=== PATIENT | female | born 1940 | race Caucasian/White ===

== ENCOUNTER 2019-10-10 17:17 | Inpatient (IN) | payer MEDICARE ==
[~2019-10-10] VITALS: Ht 157.5 cm; Wt 69.1 kg
--- NOTE | ~2019-10-10 | OP ---
PATIENT NAME: KAE STINSON MEDICAL RECORD: [id number] :44 LOCATION:D.M2 D.2118 ADMISSION DATE:10/10/19 SURGEON: DORIAN ADKINS MD DATE OF OPERATION: 10/10/2019 PROCEDURES: 1. PTCA stent LAD. 2. PTCA stent LAD diagonal. 3. Percutaneous transluminal coronary angioplasty stent of left circumflex. 4. Left heart catheterization. 5. Selective coronary angiography. 6. Left ventriculogram. INDICATION: Acute anterior myocardial infarction. PROCEDURE IN DETAIL: After informed consent was obtained, detailed description of risks, benefits as well as alternative therapies, the patient elected to proceed with angiogram and angioplasty. The right femoral area was prepped and draped in normal sterile fashion. Right femoral artery was cannulated via modified Seldinger technique with placement of 6-Chinese sheath. All catheters exchanged through this sheath. FINDINGS: The left ventriculogram was performed in standard 30-degree COCHRAN view, reveals global hypokinesis throughout all segments. Overall ejection fraction in the 20% range. SELECTIVE CORONARY ANGIOGRAPHY: 1. Left main is with no significant angiographic disease. 2. The left anterior descending has 95-99% stenosis in the proximal mid vessel. 3. The LAD diagonal has 95-99% stenosis in the proximal mid vessel. 4. The left circumflex has 90% stenosis in the mid vessel. 5. The right coronary has 90% stenosis times 2 at the PDA and TANIA. PTCA STENT OF THE LAD, LAD DIAGONAL, AND LEFT CIRCUMFLEX: The LAD was addressed with a 2.5 x 26 mm [place], the diagonal with a 2.25 x 15 mm Gerard, and the left circumflex with a 2.5 x 15 mm Gerard. Result was 0% residual stenosis. OVERALL IMPRESSION: Successful percutaneous transluminal coronary angioplasty stent of the left anterior descending, LAD diagonal, and left circumflex all going from 90% to 99% initial stenosis to 0% residual. PLAN: For PTCA stent of the RCA in the near future. TRANSINT:[id number] Voice Confirmation ID: [id number] DOCUMENT ID: [id number] DORIAN ADKINS MD CC: [id number] DICTATION DATE: 10/10/191820 PRESS FEEDER BROOMCORN: 10/11/19 [address] [facility] [address] [place] [address]
--- NOTE | ~2019-10-10 | HEMODYNAMI ---
PATIENT:KAE STINSON MEDICAL RECORD: [id number] : 44 LOCATION:[facility] D.2118 ADMISSION DATE: 10/10/19 Generatedon:10/12/201911:13 Patient name: KAE STINSON Patient #: [id number] : 1940 Date of study: 10/12/2019 Page: Of Hemodynamic Procedure Report Patient Data Patient Demographics Procedure consent was obtained First Name: KAE Gender: Female Last Name: SHANTELL : 1940 Patient #: [id number] Age: 79 year(s) Race: SSN: [id number] Additional ID: [id number] Contact details Address: [address] [place] [address] State: [place] City: [place] Zip code: [address] Past Medical History Allergies: No known allergies Admission Admission Data Admission Date: 10/10/2019 Admission Time: 19:16 Arrival Date: 10/10/2019 Arrival Time: 17:00 Admit Source: Other Insurance Payor: Medicare Room #: D.2118 [facility] #: [id number] Height (in.): 62 BSA: 1.7 (m2) Height (cm.): 157.48 BMI: 27.88 (kg/m2) Weight (lbs.): 152.41 Weight (kg.): 69.13 Lab Results Lab Result Date: 10/12/2019 Lab Result Time: 0:00 Biochemistry Name Units Result Min Max BUN mg/dl 18 --(---*)-- 7 18 Creatinine mg/dl 0.8 --(-*--)-- 0.6 1.3 eGFR ml/min 73.52511 *-(----)-- 90 120 NONAFRICAN CBC Name Units Result Min Max Hematocrit % 34.5 *-(----)-- 42 54 Hemoglobin g/dl 11.6 *-(----)-- 13.5 17.5 Procedure Procedure Types Cath Procedure Diagnostic Procedure Sedation Charges Moderate Sedation up to 15 minutes PCI Procedure Coronary Stent Coronary Stent Initial Hemochron ACT Test Procedure Description Procedure Date Procedure Date: 10/12/2019 Procedure Start Time: 10:57 Procedure End Time: 11:12 Procedure Staff Name Function Heriberto Smith MD Performing Physician Bernie Parisi RT Monitor Ashley Hoyos RT Scrub Ham Dukes RN Nurse Indication Prior PCI with stent placement Procedure Data Cath Procedure Fluoroscopy Diagnostic fluoroscopy Total fluoroscopy Time: 3.9 time: 3.9 min min Diagnostic fluoroscopy Total fluoroscopy dose: 333 dose: 333 mGy mGy Contrast Material Contrast Material Type Amount (ml) Isovue 370 75 Entry Location Entry Primary Successful Side Size Upsize Upsize Entry Closure Succes sful Closure Location (Fr) 1 (Fr) 2 (Fr) Remarks Device Remarks Femoral Left 6 Fr Exoseal artery Short Estimated blood loss: 10 ml Procedure Complications No complications Procedure Medications Medication Administration Route Dosage Oxygen etCO2 Nasal cannula 2 l/min Lidocaine 2% added to field 20 Heparin Flush Bag added to field 2 bags (1000units/500ml NS) 0.9% NaCl I.V. 100 ml/hr Versed I.V. 1 mg Fentanyl I.V. 50 mcg Heparin Bolus I.V. 4000 units Versed I.V. 1 mg Fentanyl I.V. 50 mcg Hemodynamics Rest BSA: 1.7 (m2) HGB: 11.6 (g/dl) O2 Consumption: Estimated: 155.73 (ml/min) O2 Con sumption indexed: Estimated:91.61 (ml/min/m) Heart Rate: 73 (bpm) Snapshots Pre Cath Intra NCS Post Cath Vital Signs Time Heart Resp SPO2 etCO2 NIBP (mmHg) Rhythm Pain Sedation Rate (ipm) (%) (mmHg) Status Level (bpm) 10:52:36 69 28 93 32.6 119/63(92) NSR 0 (11) 10(A) , No pain 10:56:46 67 26 91 28.1 108/61(91) NSR 0 (11) 10(A) , No pain 11:01:37 66 15 94 14.4 109/60(88) NSR 0 (11) 9(A) , No pain 11:06:34 72 18 93 15.9 138/70(108) NSR 0 (11) 9(A) , No pain 11:09:07 68 19 92 3 123/64(95) NSR 0 (11) 9(A) , No pain 11:10:25 67 18 93 2.2 118/61(91) NSR 0 (11) 10(A) , No pain Medications Time Medication Route Dose Verified Delivered Reason Notes Effectiveness by by 10:51:40 Oxygen etCO2 2 Herbierto Cheek used for Nasal l/min Sarah Dukes RN procedure cannula 10:51:46 Lidocaine 2% added 20ml Heriberto Louis for local to vial Sarah Smith MD anesthetic field 10:51:52 Heparin Flush added 2 Heribertobrian Louis used for Bag to bags Sarah Smith MD procedure (1000units/500ml field NS) 10:52:00 0.9% NaCl I.V. 100 Heriberto Cheek Per physician ml/hr Sarah Dukes RN 10:57:11 Versed I.V. 1 mg Heriberto Cheek for sedation Sarah Dukes RN 10:57:17 Fentanyl I.V. 50 Heriberto Cheek for sedation mcg Sarah Dukes RN 10:59:15 Heparin Bolus I.V. 4000 Heriberto Cheek for verif ied units Sarah Dukes RN anticoagulation with dr smith 11:00:39 Versed I.V. 1 mg Heriberto Cheek for sedation Sarah Dukes RN 11:00:42 Fentanyl I.V. 50 Heriberto Cheek for sedation mcg Sarah Dukes RN Procedure Log Time Note 10:36:30 Ham Dukes RN sent for patient. Start room use. 10:39:35 Informed consent obtained and on chart 10:40:13 Diagnostic Cath Status : Urgent 10:40:41 Indication : Prior PCI with stent placement 10:40:47 Patient Height : 62 inches 10:40:53 Patient Weight : 152.41 lbs 10:46:23 Admit Source: Other 10:46:27 Procedure Status Urgent Heart Cath (IP), PCI. 10:46:47 Time tracking: Call back (After hours or weekends) 10:46:52 Plan of Care:Hemodynamics will remain stable., Cardiac rhythm will remain stable., Comfort level will be maintained., Respiratory function will remain adequate., Patient/ family verbilizes understanding of procedure., Procedure tolerated without complication., Recovers from procedure without complications.. 10:46:59 Patient received from [email or web address] to CCL 1 Alert and oriented. Tansferred to table in Supine position. 10:47:01 Warm blankets applied, and larisa hugger turned on for patient comfort. 10:47:02 Correct patient and procedure confirmed by team. 10:47:02 ECG and BP/O2 sat monitors applied to patient. 10:47:05 Full Disclosure recording started 10:47:10 H&P Date Dictated: 10/12/2019 Within 30 days and on chart.. 10:47:12 Pre-procedure instructions explained to patient. 10:47:12 Pre-op teaching completed and patient verbalized understanding. 10:47:14 Family in patients room. 10:47:16 Patient NPO since Midnight. 10:48:07 Patient allergic to No known allergies 10:48:10 Is the patient allergic to Iodine/contrast media? No. 10:48:13 Was the patient premedicated? N/A 10:48:19 Is patient on blood thinner?Yes 10:48:21 ACC The patient was administered the following blood thiners within the last 24 hours: ACCPlavix 10:48:26 Patient diabetic? Yes. 10:48:28 If diabetic: On Metformin? No 10:48:31 Patient not . Patient is over age 55. 10:48:32 ----Pre-sedation anethsthesia assessment.---- 10:48:35 Previous problem with sedation/anesthesia? No ? 10:48:36 Snore? Yes 10:48:38 Sleep apnea? No 10:48:39 Deviated septum? No 10:48:40 Opens mouth fully? Yes 10:48:41 Sticks out tongue? Yes 10:48:44 Airway obstruction? No ? 10:48:46 Dentures? No ? 10:48:51 Pre procedure: right dorsailis pedis pulse 2+ Normal; easily identifiable; not easily obliterated 10:48:53 Patient pain scale 0/10 ?. 10:48:58 IV patent on arrival in left antecubital with 0.9% NaCl at O. 10:49:02 Lab results completed and on chart. 10:49:05 Stress Test: no; N/A ? 10:49:09 Risk of Mortality: 4.0 10:49:12 Risk of blood transfusion: 2.4 10:49:15 Risk of YANN: 2.9 10:49:19 Left groin area was prepped with chlora-prep and draped in sterile fashion 10:49:20 Alarms reviewed by R. N. 10:49:20 Sharps counted by scrub and verified by R.N. 10:51:30 Vital chart was started 10:51:40 Oxygen 2 l/min etCO2 Nasal cannula was administered by Ham Dukes RN; used for procedure; Verbal order read back and verified. 10:51:46 Lidocaine 2% 20ml vial added to field was administered by Heriberto Smith MD; for local anesthetic; Verbal order read back and verified. 10:51:52 Heparin Flush Bag (1000units/500ml NS) 2 bags added to field was administered by Heriberto Smith MD; used for procedure; Verbal order read back and verified. 10:52:00 0.9% NaCl 100 ml/hr I.V. was administered by Ham Dukes RN; Per physician; Verbal order read back and verified. 10:56:23 --------ALL STOP TIME OUT------ 10:56:24 Final Timeout: patient, procedure, and site verified with staff and physician. All members of the team are in agreement. 10:56:25 Left groin site verified by team. 10:56:29 Fire Safety Assessment: A--An alcohol-based skin anteseptic being used preoperatively., C--Open oxygen or nitrous oxide is being used., D--An ESU, laser, or fiber-optic light is being used. 10:56:32 Physical assessment completed. ASA score P 2 - A patient with mild systemic disease as per Heriberto Smith MD. 10:56:35 2) 60-89 Mildly reduced kidney function, and other findings (as for stage 1) point to kidney disease. 10:56:38 Maximum allowable contrast dose (3.7 X eGFR X 0.75)205 ml. 10:56:42 Sedation plan: IV Moderate Sedation Medication:Versed, Fentanyl 10:56:45 Procedure started. 10:56:47 Use device set Femoral Dx 10:56:48 ACIST Syringe (89172) opened to sterile field. 10:56:49 Bag Decanter () opened to sterile field. 10:56:50 Medline Cath Pack ([id number]) opened to sterile field. 10:56:51 ACIST Hand Control (44269) opened to sterile field. 10:56:52 ACIST Manifold (53565) opened to sterile field. 10:56:56 EMERALD Guide Wire (502-517) opened to sterile field. 10:57:04 Use device set SARHA PCI 10:57:10 Local anesthetic to left femerol artery with Lidocaine 2% by Heriberto Smith MD.INITIAL ACCESS ONLY 10:57:11 Versed 1 mg I.V. was administered by Ham Dukes RN; for sedation; Verbal order read back and verified. 10:57:12 SHEATH 6FR [place] (VGM689) opened to sterile field. 10:57:15 CHOICE PT Extra Support 182cm wire ([id number]) opened to sterile field. 10:57:17 Fentanyl 50 mcg I.V. was administered by Ham Dukes RN; for sedation; Verbal order read back and verified. 10:57:17 INFLATOR Merit BasixCompak (SV1725) opened to sterile field. 10:57:32 GUIDE 6FR AR 2.0 SH catheter ([id number]) opened to sterile field. 10:57:44 A 6 Fr Short sheath was inserted into the Left Femoral artery 10:58:51 Lab Result : BUN 18 mg/dl 10:58:51 Lab Result : Creatinine 0.8 mg/dl 10:58:51 Lab Result : eGFR NONAFRICAN 73.13553 ml/min 10:58:51 Lab Result : Hemoglobin 11.6 g/dl 10:58:51 Hemodynamic formulas in Rest were re-calculated based on hemoglobin value from 10/12/2019 12:00:00 AM 10:58:51 Lab Result : Hematocrit 34.5 % 10:58:58 Proceeding to intervention. 10:59:05 6 Fr ar 2 sh guide catheter was inserted over the wire 10:59:15 Heparin Bolus 4000 units I.V. was administered by Ham Dukes RN; for anticoagulation; verified with dr smith Verbal order read back and verified. 10:59:55 Pre PCI Site: [place] dRCA has 99% stenosis. 11:00:21 CHOICES ES 182 wire advanced. 11:00:23 Wire advanced across lesion. 11:00:39 Versed 1 mg I.V. was administered by Buffie Dukes RN; for sedation; Verbal order read back and verified. 11:00:42 Fentanyl 50 mcg I.V. was administered by Ham Dukes RN; for sedation; Verbal order read back and verified. 11:01:06 Place stent Inflation Number: 1 A JUANITO RX 2.5 x 08 stent ([id number]) was prepped and advanced across the Dist RCA . The stent was deployed at 13 ANDERS for 0:00 (min:sec) . 11:01:39 Stent catheter was removed intact over wire. 11:02:23 Place stent Inflation Number: 2 A JUANITO RX 2.5 x 12 stent ([id number]) was prepped and advanced across the Dist RCA . The stent was deployed at 11 ANDERS for 0:00 (min:sec) . 11:03:55 Baseline sample Acquired. 11:03:59 Rhythm: sinus rhythm 11:05:29 Stent catheter was removed intact over wire. 11:05:30 Wire removed. 11:05:31 Guide catheter removed. 11:05:38 EXOSEAL 6Fr (EX600) opened to sterile field. 11:05:56 Sheath removed intact; hemostasis achieved with Exoseal to the Left Femoral artery. 11:06:00 Fluoroscopy time 03.90 minutes. 11:06:04 Flurop Dose total: 333 11:06:04 Fluoroscopy dose: 333 mGy 11:06:11 Dose Area Product 96343 mGy/cm. 11:06:15 Contrast amount:Isovue 370 75ml. 11:06:17 Maximum allowable dose exceeded? No. 11:06:18 Sharps counted by scrub and verified by R.N. 11:07:14 Post-op/insertion site Left Femoral artery dressed using a 4 x 4 and Tegaderm. 11:07:22 Post left femerol artery:stable, soft, clean and dry 11:07:24 Post Procedure Pulses reassessed and unchanged 11:07:27 Post procedure: right dorsailis pedis pulse 2+ Normal; easily identifiable; not easily obliterated. 11:07:30 Post-procedure physical assessment completed. ASA score P 2 - A patient with mild systemic disease as per Heriberto Smith MD. 11:07:32 Post procedure rhythm: unchanged. 11:07:35 Estimated blood loss: 10 ml 11:07:36 Post procedure instruction explained to patient.Patient verbalizes understanding. 11:07:37 Patient needs reinforcement of post procedure teaching. 11:08:02 Procedure type changed to Cath procedure, Diagnostic procedure, Sedation Charges, Moderate Sedation up to 15 minutes, PCI procedure, Coronary Stent, Coronary Stent Initial, Hemochron ACT Test 11:08:19 Procedure ended.(Physican Out) 11:09:15 Procedure and supply charges have been captured, reviewed, submitted and are correct. 11:09:20 Procedure Complication : No complications 11::29 [facility] Findings: MVD- PCI performed (see procedure note) 11::30 Operative report dictated upon procedure completion. 11::30 See physician's report for complete and final results. 11::35 Report given to [facility] II. 11:09:38 Patient transfered to Med II with Bed. 11:11:08 ACT drawn and resulted at 233 seconds. (normal therapeutic range 180-240 seconds). 11:12:16 Procedure ended. 11:12:16 Full Disclosure recording stopped 11:12:21 ACC-PCI Only Patient was given prescriptions, or instructed by Heriberto Smith MD to start/continue the following medications upon discharge: Plavix 11:12:23 End room use (Document Last) 11:12:35 End room use (Document Last) 11:12:54 End room use (Document Last) Intervention Summary Intervention Notes Time ActionType Lesion and Equipment Used Action# Pressure Duration Attributes 11:01:06 Place stent Dist RCA JUANITO RX 2.5 x 1 13 00:00 08 stent ([id number]) 11:02:23 Place stent Dist RCA JUANITO RX 2.5 x 2 11 00:00 12 stent ([id number]) Device Usage Item Name Manufacture Quantity Catalog Number Hospital Part Current M inimal Lot# / Charge Number Stock Stock Serial# Code ACIST Syringe Acist 1 63564 063847 303672 168269 2 0 (54575) Medical Systems Inc Bag Decanter Microtek 1 009592 05177 120314 5 () Medical Inc. Medline Cath Medline 1 [id number] 411621 72061 127771 5 Pack ([id number]) ACIST Hand Acist 1 14580 052588 392053 694801 5 Control Medical (75491) Systems Inc ACIST Manifold Acist 1 15225 175503 747035 230237 5 (23301) Medical Systems Inc EMERALD Guide Cardinal 1 502-455 906573 555397 090572 5 Wire (502-455) Health SHEATH 6FR Terumo 1 [id number] 091339 242258 699553 4 0 [place] ([id number]) CHOICE PT [place] 1 [id number] 573859 100228 261888 5 Extra Support Scientific 182cm wire ([id number]) INFLATOR Merit Merit 1 [id number] 133828 566987 603602 1 5 [facility] Medical ([id number]) GUIDE 6FR AR Medtronic 1 [id number] 254157 60303 301344 1 2.0 SH catheter ([id number]) JUANITO RX 2.5 x Medtronic 1 [id number] 662435 8040553 775685 5 [id number] 08 stent ([id number]) JUANITO RX 2.5 x Medtronic 1 [id number] 458576 4156848 229445 5 [id number] 12 stent ([id number]) EXOSEAL 6Fr Cardinal 1 EX600 510797 961107 025002 1 0 (EX600) Health Signature Audit [place] Stage Time Signature Unsigned Intra-Procedure 10/12/2019 Bernie Parisi 11:12:35 AM RT(R) Intra-Procedure 10/12/2019 Ham Dukes RN 11:12:55 AM Intra-Procedure 10/12/2019 Heriberto Smith 11:13:22 AM [facility] [address] [place] [address]
--- NOTE | ~2019-10-10 | OP ---
PATIENT NAME: KAE STINSON MEDICAL RECORD: [id number] :44 LOCATION:D.M2 D.2118 ADMISSION DATE:10/10/19 SURGEON: DORIAN ADKINS MD DATE OF OPERATION: 10/11/2019 PROCEDURES: 1. PTCA stent RCA. 2. Selective coronary angiography. INDICATION: Angina and coronary artery disease. PROCEDURE PERFORMED: After informed consent was obtained, detailed description of risks, benefits as well as alternative therapies, the patient elected to proceed with angiogram and angioplasty. The left femoral area was prepped and draped in normal sterile fashion. Left femoral artery was cannulated via modified Seldinger technique with placement of 6-Khmer sheath. All catheters exchanged through this sheath. FINDINGS: The right coronary has 90% stenosis times 2 in the distal aspect. This was addressed with a 2.5 x 8 and 2.5 x 12 both Gerard stents. Result was 0% residual stenosis. OVERALL IMPRESSION: Successful percutaneous transluminal coronary angioplasty stent of the right coronary artery going from 90% initial stenosis to 0% residual. TRANSINT:[id number] Voice Confirmation ID: [id number] DOCUMENT ID: [id number] DORIAN ADKINS MD CC: [id number] DICTATION DATE: 10/12/19 1111 THREAD WINDER: 10/12/19 1933 ADM IN [facility] [address] [place] [address]
--- NOTE | ~2019-10-10 | HEMODYNAMI ---
PATIENT:KAE STINSON MEDICAL RECORD: [id number] : 44 [id number] ADMISSION DATE: 10/10/19 Generatedon:10/10/201918:28 Patient name: KAE STINSON Patient #: [id number] : 1940 Date of study: 10/10/2019 Page: Of Hemodynamic Procedure Report Patient Data Patient Demographics Procedure consent was obtained First Name: KAE Gender: Female Last Name: SHANTELL : 1940 Patient #: [id number] Age: 79 year(s) Race: SSN: [id number] Additional ID: [id number] Contact details [address]: [address] [place] [address] State: [place] City: [place] Zip code: [address] Admission Admission Data Admission Date: 10/10/2019 Admission Time: 17:17 Arrival Date: 10/10/2019 Arrival Time: 17:00 Admit Source: Emergency Insurance Payor: Medicare department [facility] #: [id number] Lab Results Lab Result Date: 10/10/2019 Lab Result Time: 0:00 Biochemistry Name Units Result Min Max BUN mg/dl 8 --(*---)-- 7 18 Creatinine mg/dl 0.4 *-(----)-- 0.6 1.3 CBC Name Units Result Min Max Hemoglobin g/dl 13.3 -*(----)-- 13.5 17.5 Procedure Procedure Types Cath Procedure Diagnostic Procedure LHC LH w/Coronaries Sedation Charges Moderate Sedation up to 30 minutes PCI Procedure Coronary Stent Coronary Stent Initial x2 Coronary Stent Additional Hemochron ACT Test Procedure Description Procedure Date Procedure Date: 10/10/2019 Procedure Start Time: 18:00 Procedure End Time: 18:24 Procedure Staff Name Function Heriberto Smith MD Performing Physician Ashley Hoyos RT Monitor Bernie Parisi RT Scrub Ham Dukes RN Nurse Procedure Data Cath Procedure Fluoroscopy Diagnostic fluoroscopy Total fluoroscopy Time: 6.1 time: 6.1 min min Diagnostic fluoroscopy Total fluoroscopy dose: dose: 5830 mGy 5830 mGy Contrast Material Contrast Material Type Amount (ml) Isovue 300 124 Entry Location Entry Primary Successful Side Size Upsize Upsize Entry Closure Succes sful Closure Location (Fr) 1 (Fr) 2 (Fr) Remarks Device Remarks Femoral Right 6 Fr Exoseal artery Short Estimated blood loss: 5 ml Diagnostic catheters Device Type Used For End Catheter Placement MULTIPACK Pigtail 5 Fr LV Angiography catheter MULTIPACK JL 4.0 5Fr Left Coronary catheter Angiography MULTIPACK 3DRC 5Fr Right Coronary catheter Angiography Procedure Complications No complications Procedure Medications Medication Administration Route Dosage Oxygen etCO2 Nasal cannula 2 l/min Lidocaine 2% added to field 20 Heparin Flush Bag added to field 2 bags (1000units/500ml NS) 0.9% NaCl I.V. 100 ml/hr Heparin Drip (17188bsimn/250 D5W) Versed I.V. 1 mg Fentanyl I.V. 50 mcg Lopressor I.V. 5 mg Heparin Bolus I.V. 5000 units Integrilin (Bolus I.V. 6.2 ml 2mg/ml) Versed I.V. 1 mg Fentanyl I.V. 50 mcg Plavix P.O. 600 mg Hemodynamics Rest HGB: 13.3 (g/dl) Heart Rate: 95 (bpm) Snapshots Pre Cath Intra NCS Post Cath Vital Signs Time Heart Resp SPO2 etCO2 NIBP (mmHg) Rhythm Pain Sedation Rate (ipm) (%) (mmHg) Status Level (bpm) 17:54:21 93 25 95 0 153/89(107) NSR 0 (11) 10(A) , No pain 17:58:33 88 23 94 0 139/79(108) NSR 0 (11) 10(A) , No pain 18:02:42 84 22 95 0 132/73(104) NSR 0 (11) 10(A) , No pain 18:06:52 67 19 93 0 125/61(90) NSR 0 (11) 9(A) , No pain 18:11:00 68 20 94 0 117/61(80) NSR 0 (11) 9(A) , No pain 18:15:06 69 21 96 0 127/61(85) NSR 0 (11) 9(A) , No pain 18:19:16 70 20 95 5.3 124/60(76) NSR 0 (11) 10(A) , No pain 18:23:22 70 24 91 0.7 127/66(91) NSR 0 (11) 10(A) , No pain Medications Time Medication Route Dose Verified Delivered Reason N otes Effectiveness by by 17:53:45 Oxygen etCO2 2 l/min Heriberto Cheek used for Nasal Sarah Dukes RN procedure cannula 17:53:52 Lidocaine 2% added 20ml vial Heriberto Louis for local to Sarah Smith MD anesthetic field 17:56:00 Heparin Flush added 2 bags Heribertobrian Louis used for Bag to Sarah Smith MD procedure (1000units/500ml field NS) 17:56:08 0.9% NaCl I.V. 100 ml/hr Heribertobrian Cheek Per physician Sarah Dukes RN 17:56:28 Heparin Drip stopped Heriberto Cheek Per physician (61055odhjq/250 for Sarah Dukes RN D5W) procedure 17:56:35 Versed I.V. 1 mg Heriberto Cheek for sedation Sarah Dukes RN 17:56:40 Fentanyl I.V. 50 mcg Heriberto Cheek for sedation Sarah Dukes RN 18:03:12 Lopressor I.V. 5 mg Heriberto Cheek Per physician Sarah Dukes RN 18:04:42 Heparin Bolus I.V. 5000 Heriberto Cheek for v erified units Sarah Dukes RN anticoagulation with dr smith 18:07:29 Integrilin I.V. 6.2 ml Heriberto Cheek for w asted (Bolus 2mg/ml) Sarah Dukes RN antiplatelet 3.8 ml therapy of vial 18:10:18 Versed I.V. 1 mg Heriberto Cheek for sedation Sarah Dukes RN 18:10:22 Fentanyl I.V. 50 mcg Heriberto Cheek for sedation Sarah Dukes RN 18:21:21 Plavix P.O. 600 mg Heriberto Cheek for Sarah Dukes RN antiplatelet therapy Procedure Log Time Note 17:29:37 Diagnostic Cath Status : Urgent 17:30:28 Informed consent obtained and on chart 17:30:41 Admit Source: Emergency department 17:30:43 Arrival Date: 10/10/2019 5:00:00 PM 17:30:52 Insurance Payor : Medicare 17:32:05 Ham Dukes RN sent for patient. Start room use. 17:32:06 Time tracking: Regular hours (M-F 7:00 - 5:00) 17:32:10 Plan of Care:Hemodynamics will remain stable., Cardiac rhythm will remain stable., Comfort level will be maintained., Respiratory function will remain adequate., Patient/ family verbilizes understanding of procedure., Procedure tolerated without complication., Recovers from procedure without complications.. 17:53:13 Patient received from ED to CCL 1 Alert and oriented. Tansferred to table in Supine position. 17:53:14 Warm blankets applied, and larisa hugger turned on for patient comfort. 17:53:15 Correct patient and procedure confirmed by team. 17:53:15 ECG and BP/O2 sat monitors applied to patient. 17:53:16 Vital chart was started 17:53:17 Baseline sample Acquired. 17:53:22 Rhythm: sinus rhythm 17:53:24 Full Disclosure recording started 17:53:28 H&P Date Dictated: 10/10/2019 ER History on chart.. 17:53:29 Pre-procedure instructions explained to patient. 17:53:30 Pre-op teaching completed and patient verbalized understanding. 17:53:31 Family in waiting room. 17:53:40 Patient NPO since Midnight. 17:53:45 Oxygen 2 l/min etCO2 Nasal cannula was administered by Ham Dukes RN; used for procedure; Verbal order read back and verified. 17:53:52 Lidocaine 2% 20ml vial added to field was administered by Heriberto Smith MD; for local anesthetic; Verbal order read back and verified. 17:53:52 Is the patient allergic to Iodine/contrast media? No. 17:53:53 Was the patient premedicated? Yes 17:53:54 Is patient on blood thinner?Yes 17:53:57 ACC The patient was administered the following blood thiners within the last 24 hours: ACCHeparin 17:53:59 Patient diabetic? Yes. 17:54:00 If diabetic: On Metformin? No 17:54:04 Previous problem with sedation/anesthesia? No ? 17:54:06 Snore? Yes 17:54:07 Sleep apnea? No 17:54:08 Deviated septum? No 17:54:09 Opens mouth fully? Yes 17:54:10 Sticks out tongue? Yes 17:54:13 Airway obstruction? No ? 17:54:16 Dentures? No ? 17:54:25 Pre procedure: right dorsailis pedis pulse 2+ Normal; easily identifiable; not easily obliterated 17:54:27 Pre procedure: left dorsailis pedis pulse 2+ Normal; easily identifiable; not easily obliterated 17:54:28 Patient pain scale 0/10 ?. 17:54:42 IV patent on arrival in right antecubital, left antecubital with 0.9% NaCl at [facility]. 17:54:45 Lab results completed and on chart. 17:55:00 Right groin area was prepped with chlora-prep and draped in sterile fashion 17:55:01 Alarms reviewed by R. N. 17:55:02 Sharps counted by scrub and verified by R.N. 17:55:02 Physician arrived 17:55:03 --------ALL STOP TIME OUT------ 17:55:03 Final Timeout: patient, procedure, and site verified with staff and physician. All members of the team are in agreement. 17:55:04 Right groin site verified by team. 17:55:08 Fire Safety Assessment: A--An alcohol-based skin anteseptic being used preoperatively., C--Open oxygen or nitrous oxide is being used., D--An ESU, laser, or fiber-optic light is being used. 17:55:12 Physical assessment completed. ASA score P 2 - A patient with mild systemic disease as per Heriberto Smith MD. 17:56:00 Heparin Flush Bag (1000units/500ml NS) 2 bags added to field was administered by Heriberto Smith MD; used for procedure; Verbal order read back and verified. 17:56:08 0.9% NaCl 100 ml/hr I.V. was administered by Ham Dukes RN; Per physician; Verbal order read back and verified. 17:56:28 Heparin Drip (24695gbsyz/250 D5W) stopped for procedure was administered by Ham Dukes RN; Per physician; Verbal order read back and verified. 17:56:35 Versed 1 mg I.V. was administered by Ham Dukes RN; for sedation; Verbal order read back and verified. 17:56:40 Fentanyl 50 mcg I.V. was administered by Ham Dukes RN; for sedation; Verbal order read back and verified. 17:56:40 Sedation plan: IV Moderate Sedation Medication:Versed, Fentanyl 17:57:10 Lab Result : Hemoglobin 13.3 g/dl 17:57:10 Lab Result : Creatinine 0.4 mg/dl 17:57:10 Lab Result : BUN 8 mg/dl 17:57:18 Use device set Femoral Dx 17:57:19 ACIST Syringe (03655) opened to sterile field. 17:57:19 Bag Decanter (2002S) opened to sterile field. 17:57:19 Medline Cath Pack ([id number]) opened to sterile field. 17:57:20 ACIST Manifold (25761) opened to sterile field. 17:57:21 ACIST Hand Control (08543) opened to sterile field. 17:57:22 DIAGNOSTIC Multipack 5Fr catheter set (PF1477) opened to sterile field. 17:57:22 Tegaderm 4 x 4 (1626W) opened to sterile field. 17:57:23 EMERALD Guide Wire (532-362) opened to sterile field. 17:57:28 Procedure started. 18:00:34 Local anesthetic to right femoral artery with Lidocaine 2% by Heriberto Smith MD.INITIAL ACCESS ONLY 18:00:41 A 6 Fr Short sheath was inserted into the Right Femoral artery 18:00:55 SHEATH 6FR [place] (LOO819) opened to sterile field. 18:01:08 A MULTIPACK Pigtail 5 Fr catheter was advanced over the wire and used for LV Angiography. 18:01:14 LV hemodynamics recorded. 18:01:16 LV gram done using COCHRAN 18:01:18 Injector settings: Ml/sec: 5, Volume: 15, 18:01:24 EF : 25 % 18:01:36 Catheter removed. 18:01:42 A MULTIPACK JL 4.0 5Fr catheter was advanced over the wire and used for Left Coronary Angiography. 18:01:46 LCA angiography performed. 18:01:49 Injector settings: Ml/sec: 3, Volume: 6, 18:02:16 Catheter removed. 18:02:21 A MULTIPACK 3DRC 5Fr catheter was advanced over the wire and used for Right Coronary Angiography. 18:02:59 RCA angiography performed. 18:03:04 Injector settings: Ml/sec: 3, Volume: 6, 18:03:07 Catheter removed. 18:03:12 Lopressor 5 mg I.V. was administered by Ham Dukes RN; Per physician; Verbal order read back and verified. 18:03:26 CHOICE PT Extra Support 182cm wire ([id number]) opened to sterile field. 18:03:27 INFLATOR Merit BasixCompak (DJ2116) opened to sterile field. 18:03:35 GUIDE 6FR XBLAD 3.5 catheter ([id number]) opened to sterile field. 18:03:39 Proceeding to intervention. 18:03:43 ACC Pre-intervention KOLTON Flow is 3. 18:04:42 Heparin Bolus 5000 units I.V. was administered by Ham Dukes RN; for anticoagulation; verified with dr smith Verbal order read back and verified. 18:05:26 6 Fr xblad 3.5 guide catheter was inserted over the wire 18:05:30 choice pt wire advanced. 18:07:29 Integrilin (Bolus 2mg/ml) 6.2 ml I.V. was administered by Ham Dukes RN; for antiplatelet therapy; wasted 3.8 ml of vial Verbal order read back and verified. 18:07:38 ACC Pre-intervention KOLTON Flow is 3. 18:07:45 Pre PCI Site: [place] dCirc has 90% stenosis. 18:07:51 Place stent Inflation Number: 1 A JUANITO RX 2.5 x 15 stent ([id number]) was prepped and advanced across the Dist CX 90. The stent was deployed at 13 ANDERS for 0:10 (min:sec) 0. 18:08:49 Stent catheter was removed intact over wire. 18:08:52 Wire redirected to lad. 18:09:07 Wire removed. 18:09:15 GRAPHIX 182cm guide wire ([id number]) opened to sterile field. 18:09:29 graphix wire advanced. 18:10:18 Versed 1 mg I.V. was administered by Ham Dukes RN; for sedation; Verbal order read back and verified. 18:10:22 Fentanyl 50 mcg I.V. was administered by Ham Dukes RN; for sedation; Verbal order read back and verified. 18:12:49 Post PCI Site: [place] dCirc has 0% stenosis. 18:13:01 Pre PCI Site: [place] Diag1 has 95% stenosis. 18:13:12 Wire advanced across lesion. 18:13:45 Place stent Inflation Number: 1 A JUANITO RX 2.25 x 15 stent ([id number]) was prepped and advanced across the 1st Diag 95. The stent was deployed at 13 ANDERS for 0:10 (min:sec) 0. 18:14:39 Post PCI Site: [place] Diag1 has 0% stenosis. 18:14:39 Stent catheter was removed intact over wire. 18:15:52 Pre PCI Site: [place] pLAD has 95% stenosis. 18:15:56 Place stent Inflation Number: 1 A JUANITO RX 2.5 x 26 stent ([id number]) was prepped and advanced across the Prox LAD 95. The stent was deployed at 13 ANDERS for 0:10 (min:sec) 0. 18:16:59 Post PCI Site: [place] pLAD has 0% stenosis. 18:16:59 Stent catheter was removed intact over wire. 18:17:00 Wire removed. 18:17:00 Guide catheter removed. 18:17:06 EXOSEAL 6Fr (EX600) opened to sterile field. 18:20:57 ACT drawn and resulted at 233 seconds. (normal therapeutic range 180-240 seconds). 18:21:21 Plavix 600 mg P.O. was administered by Ham Dukes RN; for antiplatelet therapy; Verbal order read back and verified. 18:21:55 Sheath removed intact; hemostasis achieved with Exoseal to the Right Femoral artery. 18:22:04 Procedure ended.(Physican Out) 18:23:00 Fluoroscopy time 06.10 minutes. 18:23:05 Fluoroscopy dose: 5830 mGy 18:23:05 Flurop Dose total: 5830 18:23:11 Dose Area Product 10404 mGy/cm. 18:23:15 Contrast amount:Isovue 300 124ml. 18:23:24 Maximum allowable dose exceeded? No. 18:23:25 Sharps counted by scrub and verified by R.N. 18:23:26 Insertion/operative site no bleeding no hematoma. 18:23:29 Post-op/insertion site Right Femoral artery dressed using a 4 x 4 and Tegaderm. 18:23:31 Post Procedure Pulses reassessed and unchanged 18:23:34 Post procedure rhythm: unchanged. 18:23:36 Estimated blood loss: 5 ml 18:23:38 Post procedure instruction explained to patient.Patient verbalizes understanding. 18:23:39 Patient needs reinforcement of post procedure teaching. 18:24:18 Procedure type changed to Cath procedure, Diagnostic procedure, LHC, C w/Coronaries, Sedation Charges, Moderate Sedation up to 30 minutes, PCI procedure, Coronary Stent, Coronary Stent Initial x2, Coronary Stent Additional, Hemochron ACT Test 18:24:19 Procedure and supply charges have been captured, reviewed, submitted and are correct. 18:24:23 Procedure Complication : No complications 18:24:26 Vital chart was stopped 18:24:28 [facility] Findings: MVD- PCI performed (see procedure note) 18:24:32 Operative report dictated upon procedure completion. 18:24:32 See physician's report for complete and final results. 18:24:49 Report given to PCU. 18:24:52 Patient transfered to PCU with Stretcher. 18:24:54 Procedure ended. 18:24:54 Full Disclosure recording stopped 18:25:02 ACC-PCI Only Patient was given prescriptions, or instructed by Heriberto Smith MD to start/continue the following medications upon discharge: Plavix 18:25:04 End room use (Document Last) 18:28:03 End room use (Document Last) Intervention Summary Intervention Notes Time ActionType Lesion and Equipment Used Action# Pressure Duration Attributes 18:07:51 Place stent Dist CX JUANITO RX 2.5 x 1 13 00:10 15 stent ([id number]) 18:13:45 Place stent 1st Diag JUANITO RX 2.25 x 1 13 00:10 15 stent ([id number]) 18:15:56 Place stent Prox LAD JUANITO RX 2.5 x 1 13 00:10 26 stent ([id number]) Device Usage Item Name Manufacture Quantity Catalog Number Hospital Part Current M inimal Lot# / Charge Number Stock Stock Serial# Code ACIST Syringe Acist 1 05299 055723 005758 699062 2 0 (89722) c8apps Inc Bag Decanter Microtek 1 2001S 388927 68010 600856 5 () Medical Inc. Medline Cath Medline 1 [id number] 819908 66536 729387 5 Pack ([id number]) ACIST Manifold Acist 1 20297 450001 018828 820335 5 (29464) Medical Systems Inc ACIST Hand Acist 1 27221 844061 730505 913484 5 Control Medical (48194) Systems Inc DIAGNOSTIC Cardinal 1 JL3025 946843 01949 674671 3 0 Multipack 5Fr Health catheter set (SF1053) Tegaderm 4 x 4 3M 1 1626W 226931 503920 419057 5 (1626W) EMERALD Guide Cardinal 1 502-455 067005 587710 145349 5 Wire (502-455) Health SHEATH 6FR Terumo 1 QHI372 908062 194375 653995 4 0 [place] (KVC082) MULTIPACK Cardinal 1 717412 5 Pigtail 5 Fr Health catheter MULTIPACK JL Cardinal 1 796663 5 4.0 5Fr Health catheter MULTIPACK 3DRC Cardinal 1 358022 5 5Fr catheter Health CHOICE PT [place] 1 [id number] 396242 987559 960058 5 Extra Support Scientific 182cm wire (4600544F2) INFLATOR Merit Merit 1 MP6729 090015 140103 875417 1 5 Lighting by LED (GE1291) GUIDE 6FR Cardinal 1 56944741 895588 437912 445956 1 0 XBLAD 3.5 Health catheter (57562910) JUANITO RX 2.5 x Medtronic 1 [id number] 784369 8752892 411456 5 [id number] 15 stent ([id number]) GRAPHIX 182cm [place] 1 [id number] 404392 708408 294484 5 guide wire Alphatec Spine (3145880A4) JUANITO RX 2.25 x Medtronic 1 [id number] 472508 3212811 258779 5 [id number] 15 stent ([id number]) JUANITO RX 2.5 x Medtronic 1 [id number] 121415 8899732 364484 5 [id number] 26 stent ([id number]) EXOSEAL 6Fr Cardinal 1 EX600 677953 206848 166809 1 0 (EX600) Health Signature Audit Mcnabb Stage Time Signature Unsigned Intra-Procedure 10/10/2019 Ashley Hoyos 6:27:41 PM RT(R) Intra-Procedure 10/10/2019 Ham Dukes RN 6:28:03 PM Intra-Procedure 10/10/2019 Heriberto Smith 6:28:21 PM [id number] [place] [address]
--- NOTE | ~2019-10-10 | EC ---
PATIENT:KAE STINSON DATE OF SERVICE: 10/10/19 SEX: F MEDICAL RECORD: [id number] DATE OF : 44 LOCATION:D.M2 D.211 AGE OF PATIENT: 79 ADMISSION DATE: 10/10/19 REFERRING PHYSICIAN: INTERPRETING PHYSICIAN: DORIAN SMITH MD ECHOCARDIOGRAM REPORT ECHO CHARGES 4 ECHO COMPLETE Date: 10/11/19 CLINICAL DIAGNOSIS: [place] ECHOCARDIOGRAPHIC MEASUREMENTS (adult normal given) AC root (d.<3.7cm) 2.0 cm LV Septum d (<1.2 cm> 0.7 cm Valve Excursion 1.0 cm LV Septum (systole) 1.0 cm Left Atria (s.<4.0cm> 3.9 cm LVPW d(<1.2cm) 1.2 cm RV (d.<2.3cm) 2.2 cm LVPW (sytole) 1.4 cm LV diastole(<5.6CM) 5.5 cm MV E-F(>70mm/sec) cm LV systole 4.8 cm LVOT Diameter 1.6 cm MV exc.(>10mm) cm Est.ejection fraction (50-75%) % DOPPLER: LVIT cm/sec A 59 cm/sec E 93 cm/sec LA cm/sec RVSP 41.2 mmHg LVOT 78 cm/sec AOP1/2T m/s Asc. Ao 125 cm/sec RVOT 71 cm/sec RA cm/sec PA 78 cm/sec AV Gradient Peak 6.2 mmHg AV Mean 3.5 mmHg AV Area 1.4 cm MV Gradient Peak 4.0 mmHg MV Mean 1.8 mmHg MV Area cm COMMENTS: Ekg/Ecg Technician: [place] [facility] Manager Maintenance: 1 Dr. Smiht TAPE# PACS Pericardial Effusion Y DATE OF SERVICE: FINDINGS: 1. Left ventricular chamber size is within normal limits. Left ventricular systolic function is mildly reduced at 40%. This is a significant improvement over the ejection fraction at cardiac catheterization, which was in the 25% range. 2. Left atrium, right atrium, and right ventricle chamber sizes are within normal limits. 3. Valvular structures have normal structure and motion. ECHOCARDIOGRAM REPORT [id number] KAE STINSON 4. Doppler interrogation reveals [id number] mitral regurgitation, no other valvular insufficiency or stenosis. Pulmonary systolic pressure estimated 41 mmHg. 5. No evidence of pericardial effusion or left ventricular thrombus. TRANSINT:[id number] Voice Confirmation ID: [id number] DOCUMENT ID: [id number] DORIAN SMITH MD CC: [id number] DICTATION DATE: 10/12/191111 [employer] ATTORNEY: 10/12/[address] [facility] [address] [id number]
[2019-10-10 17:47] LABS: BASOPHILS 0.4 % (0-2); EOSINOPHILS 1.3 % (0-7); HEMATOCRIT 36.3 % (36.0-48.0); HEMOGLOBIN 12.4 g/dL (12-16); IMMATURE GRANULOCYTES 0.2 % (0-5); MCH 30.4 pg (26.0-34.0); MCHC 34.2 g/dL (31.0-37.0); MEAN PLATELET VOLUME 10.4 fL (7.4-10.4); MONOCYTES 9.2 % (2-11); NEUTROPHILS 64.9 % (40-80); PLATELET COUNT 403 10x3/uL (130-400); RBC 4.08 10x6/uL (4.00-5.40); RDW 11.9 % (11.5-14.5); WBC 10.7 10x3/uL (4.8-10.8)
[2019-10-10 17:56] LABS: CALC OSMOLALITY 276 mosm/kg (275-300); CALCIUM 8.8 mg/dL (8.5-10.1); CARBON DIOXIDE 27.8 mmol/L (21.0-32.0); CHLORIDE - SERUM 101 mmol/L (98-107); CREATININE - SERUM 0.7 mg/dL (0.6-1.3); GLUCOSE 243 mg/dL (74-106); POTASSIUM - SERUM 3.7 mmol/L (3.5-5.1); SODIUM 135 mmol/L (136-145); UREA NITROGEN 11 mg/dL (7-18); eGFR NON AFRICAN AMERICAN 86 mL/min (90-120)
[2019-10-10 19:44] VITALS: BP 130/63; BMI 28.8
[2019-10-10] MEDS ORDERED: ADVIL200 MG PO (19:44)
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
[2019-10-11] VITALS: BP 119/65
--- NOTE | 2019-10-11 00:24 | NUR ---
ASSISTED PT TO BR AT 2330 HRS. GAIT EVEN AND STEADY. PT VOIDED 500CC OF DARK YELLOW URINE. ASSISTED BACK TO BED. R GROIN CLEAN,DRY AND INTACT WITHOUT BRUISING, SWELLING OR BLEEDING. DENEID ANY PAIN TO THE AREA. PALPABLE PEDAL PULSES. SR UP X2, CALL LIGHT WITHIN REACH.
--- NOTE | 2019-10-11 02:13 | NUR ---
PT STATES ZOFRAN BEGINNING TO WORK. SLIGHT BRUISE NOTED BELOW OPSITE ON R GROIN. AREA SOFT AND NON-TENDER. PALPABLE PEDAL PULSES. SR UP X2, CALL LIGHT WITHIN REACH AND FAMILY AT BEDSIDE.
[2019-10-11 04:00] VITALS: BP 105/47
--- NOTE | 2019-10-11 04:03 | NUR ---
PT HAS C/O SOB AND DISCOMFORTR TO CHEST. O2 SAT 93% ON RM AIR, O2 2LNC PLACED WITH O2 SAT TO 96%. NORCO 5/325 PO GIVEN FOR C/O CHEST DISCOMFORT. FAMILY AT BEDSIDE. SR UP X2,CALL LIGHT WITHIN REACH.
--- NOTE | 2019-10-11 04:05 | NUR ---
R GROIN SOFT TO TOUCH. BRUISING NOTED TO R GROIN AREA. STRONG PEDAL PULSES.
--- NOTE | 2019-10-11 06:00 | NUR ---
VSS THROUGHOUT NIGHT. SR PER CM. PT STATED NORCO ALLEVIATED HER DISCOMFORT. R GROIN SOFT, NON-TENDER. PALPABLE PEDAL PULSES. NEEDS MET; WILL CONTINUE TO MONITOR.
[2019-10-11 09:10] VITALS: BP 112/56
[2019-10-11 12:00] VITALS: BP 142/83
[2019-10-11 15:16] VITALS: Ht 157.5 cm; Wt 69.1 kg
--- NOTE | 2019-10-11 16:16 | NUR ---
PAGED DR ADKINS RECEIVED NEW ORDERS PT SOB RATE 42 B/P 154/85 P95 O2 SAT 94% ON 3LPM NC FSBS 346
[2019-10-11 20:00] VITALS: BP 149/76
--- NOTE | 2019-10-11 21:48 | NUR ---
INITAIL ROUNDS COMPLETED AT 1915 HRS. PT STATES FEELS BETTER. NEW MEDS ORDERED BY DR BURNS EXPLAINED TO PT. ASSESSMENT COMPLETED AT 2004. VSS. SR PER CM HR 91. VSS. ALERT AND ORIENTED TO PERSON, PLACE AND TIME. SHAFFER. LUNGS DIMINISHED IN BASES BILAT. IV TO RAC SL. R GROIN BRUISED, SOFT TO TOUCH. STRONG PEDAL PULSES. PM FSBS 138. NO COVERGAE NEEDED. AWAITING HISTORIOGRAPHER TO PULL MEDS. SR UP X2,CALL LIGHT WITHIN REACH AND BED ALARM ON.
--- NOTE | 2019-10-11 23:14 | NUR ---
IV ROCEPHIN INFUSED. PT DENEID ANY PROBLEMS. SON AT BEDSIDE. SR UP X2, CALL LIGHT WITHIN REACH AND BED ALRM ON.
--- NOTE | 2019-10-12 01:28 | NUR ---
PT RESTING WITH EYES CLOSED. RESP EVEN AND REGULAR. SR UP X2, CALL LIGHT WITHIN REACH AND BED ALARM ON.
[2019-10-12 01:35] VITALS: BP 140/68
--- NOTE | 2019-10-12 04:58 | NUR ---
PT RESTING WITH EYES CLOSED. RESP EVEN AND REGULAR. SR UP X2,CALL LIGHT WITHIN REACH.
[2019-10-12 05:04] LABS: BASOPHILS 0.1 % (0-2); EOSINOPHILS 0.2 % (0-7); HEMATOCRIT 34.5 % (36.0-48.0); HEMOGLOBIN 11.6 g/dL (12-16); IMMATURE GRANULOCYTES 0.2 % (0-5); LYMPHOCYTES 14.9 % (15-50); MCH 30.4 pg (26.0-34.0); MCHC 33.6 g/dL (31.0-37.0); MCV 90.3 fL (80.0-100.0); MEAN PLATELET VOLUME 10.8 fL (7.4-10.4); MONOCYTES 7.3 % (2-11); NEUTROPHILS 77.3 % (40-80); PLATELET COUNT 412 10x3/uL (130-400); RBC 3.82 10x6/uL (4.00-5.40); RDW 12.3 % (11.5-14.5)
[2019-10-12 05:08] LABS: WBC 16.2 10x3/uL (4.8-10.8)
[2019-10-12 05:11] VITALS: BP 144/87
[2019-10-12 05:24] LABS: ALBUMIN 2.7 g/dL (3.4-5.0); ANION GAP 10.4 mmol/L (8-16); BILIRUBIN - TOTAL 0.56 mg/dL (0.2-1.3); CARBON DIOXIDE 30.4 mmol/L (21.0-32.0); CREATININE - SERUM 0.8 mg/dL (0.6-1.3); MAGNESIUM - SERUM 1.9 mg/dL (1.8-2.4); PHOSPHOROUS 3.6 mg/dL (2.5-4.9)
[2019-10-12 05:30] LABS: POTASSIUM - SERUM 4.8 mmol/L (3.5-5.1)
--- NOTE | 2019-10-12 05:55 | NUR ---
VSS THROUGHOUT NIGHT. PT DENIED ANY DISCOMFORT. NEEDS MET; WILL CONTINUE TO MONITOR.
--- NOTE | 2019-10-12 07:15 | NUR ---
RECEIVED PT IN BED EYES CLOSED RESP UNLABORED NAD NOTED
[2019-10-12 09:14] VITALS: BP 137/79
--- NOTE | 2019-10-12 11:09 | HP ---
PATIENT: KAE MARCELINO MEDICAL RECORD: [id number] ACCOUNT: [id number] LOCATION:[facility].2118 : 44 ADMISSION DATE: 10/10/19 PCP: ROD DUARTE HISTORY AND PHYSICAL EXAMINATION ADMITTING DIAGNOSES: 1. Acute myocardial infarction. 2. Coronary artery disease. 3. Diabetes. HISTORY OF PRESENT ILLNESS: Mrs. Marcelino has not had a cardiac history. She has been having chest pain on and off for 2 weeks. It worsened dramatically Sunday night and has had multiple episodes of severe chest pain this week. She finally presented to [facility]. Her EKG has a new left bundle branch block, T-wave inversions in the lateral lead. She was given morphine, heparin, nitro in the Emergency Room. She became pain free. She has been transferred. She is on a heparin drip. PHYSICAL EXAMINATION: CONSTITUTIONAL/GENERAL APPEARANCE: Well nourished, well developed, appears stated age. EYES: Lids and conjunctivae noninjected. No discharge. No pallor. ENT: Lips within normal limit. No cyanosis. No pallor. NECK: Carotid arteries, bilateral normal upstroke. No bruits. No thrills. No jugular venous pressure or distention. CERVICAL LYMPH NODES: Nontender. Nonenlarged. THYROID: Not enlarged. No nodules. CARDIOVASCULAR: Precordial exam, nondisplaced. No heaves or pericardial thrills. Rate and rhythm, regular. Heart sounds, normal S1, normal S2. No S3, no gallop, no rub. Systolic murmur, not heard. Diastolic murmur, not heard. RESPIRATORY: Respiratory effort, unlabored. Normal curvature. No thoracic deformity. No chest wall tenderness. Percussion, resonant. Auscultation, clear. No wheezes, no rales, no rhonchi. ABDOMEN: Soft, nondistended, nontender. No abdominal pain, no vomiting and normal appetite. MUSCULOSKELETAL: No joint tenderness, normal gait, normal tone. SKIN: Warm and dry. OVERALL IMPRESSION: Myocardial infarction, acute. At this time, we will discontinue the heparin and proceed with coronary angiography. Further care depends upon the findings of the angiography. TRANSINT:[id number] Voice Confirmation ID: [id number] DOCUMENT ID: [id number] DORIAN ADKINS MD at 1109 CC: [id number] DICTATION DATE: 10/10/19 175 CLOTH DOUBLING MACHINE OPERATOR: 10/10/19 1809 ADM IN [facility] [address] [id number]
[2019-10-12 16:42] VITALS: BP 129/65
[2019-10-12 20:00] VITALS: BP 152/68
--- NOTE | 2019-10-12 22:56 | NUR ---
INITIAL ROUNDS COMPLETED AT 1915 HRS. P DENIED ANY DISCOMFORT. ASSESSMENT COMPLETED AT 1945HRS. VSS. ALERT AND ORIENTED TO PERSON,PLACE AND TIME. SHAFFER. IV TO LFA SL. LUNGS DIMINISHED IN BASES BILAT. L GROIN CLEAN, DRY AND INTACT WITHOUT SWELLING, BRUISING OR BLEEDING. R GROIN SOFT WITH BRUISING NOTED. PALPABLE PEDAL PULSES. ST PER CM HR 116. PM FSBS 332. 6 UNITS HUMALOG GIVEN SUB-Q TO UPPER L ARM. PM MEDS GIVEN. PT CURRENTLY RESTING WITH EYES CLOSED. RESP EVEN AND REGULAR. SR UP X2, CALL LIGHT WITHN REACH.
[2019-10-13] VITALS: BP 148/86
--- NOTE | 2019-10-13 00:27 | NUR ---
PT HAS C/O CHEST AND ARM DISCOMFORT AND SOB. O2 2LNC PLACED. VSS. MORPHINE 4MG SIVP GIVEN. SR UP X2, CALL LIGHT WITHIN REACH AND BED ALARM ON.
--- NOTE | 2019-10-13 00:29 | NUR ---
NO CHANGES TO L GROIN NOTED. PALPABLE PEDAL PULSES. FAMILY AT BEDSIDE.
--- NOTE | 2019-10-13 02:22 | NUR ---
PT RESTING WIHT EYES CLOSED ON L SIDE. RESP EVEN AND REGULAR. SR UP X2, CALL LIGHT WITHIN REACH AND FAMILY AT BEDSIDE.
[2019-10-13 04:00] VITALS: BP 122/59
--- NOTE | 2019-10-13 04:21 | NUR ---
NO CHANGES TO L GROIN NOTED. PALPABLE PEDAL PULSES. ZOFRAN 4MG SIVP GIVEN FOR C/O NAUSEA. MYLANTA 30CC PO GIVEN FOR C/O UPPER GI DISTRESS. SR UP X2, CALL LIGHT WITHIN REACH AND BED ALARM ON.
[2019-10-13 05:42] LABS: BASOPHILS 0.3 % (0-2); HEMOGLOBIN 10.4 g/dL (12-16); IMMATURE GRANULOCYTES 0.3 % (0-5); LYMPHOCYTES 18.7 % (15-50); MCH 30.1 pg (26.0-34.0); MCHC 33.5 g/dL (31.0-37.0); MCV 89.6 fL (80.0-100.0); MEAN PLATELET VOLUME 10.4 fL (7.4-10.4); MONOCYTES 11.8 % (2-11); NEUTROPHILS 67.9 % (40-80); PLATELET COUNT 387 10x3/uL (130-400); RBC 3.46 10x6/uL (4.00-5.40); RDW 12.2 % (11.5-14.5)
[2019-10-13 05:46] LABS: WBC 11.7 10x3/uL (4.8-10.8)
[2019-10-13 07:00] LABS: CALC OSMOLALITY 270 mosm/kg (275-300); CALCIUM 8.2 mg/dL (8.5-10.1); CARBON DIOXIDE 27.1 mmol/L (21.0-32.0); CHLORIDE - SERUM 97 mmol/L (98-107); CREATININE - SERUM 0.7 mg/dL (0.6-1.3); GLUCOSE 214 mg/dL (74-106); MAGNESIUM - SERUM 1.8 mg/dL (1.8-2.4); SODIUM 131 mmol/L (136-145); UREA NITROGEN 17 mg/dL (7-18); eGFR NON AFRICAN AMERICAN 86 mL/min (90-120)
[2019-10-13 07:08] LABS: POTASSIUM - SERUM 3.6 mmol/L (3.5-5.1)
--- NOTE | 2019-10-13 07:14 | NUR ---
AM FSBS 232. 4 UNITS HUMALOG GIVEN SUB-Q TO UPPER L ARM. VSS THROUGHOUT NIGHT. SR/ST PER CM. NEEDS MET; WILL CONTINUE TO MONITOR.
[2019-10-13 08:34] VITALS: BP 130/55
[2019-10-13 12:00] VITALS: BP 143/83
[2019-10-13 12:28] LABS: NITRITE NEGATIVE (NEGATIVE); SPECIFIC GRAVITY 1.015 (1.005-1.020)
[2019-10-13 12:29] LABS: BACTERIA FEW /hpf (NEGATIVE); BILIRUBIN NEGATIVE (NEGATIVE); EPITHELIAL CELLS OCC /hpf (0-5); GLUCOSE 1000 mg/dL (NEGATIVE); KETONE SMALL mg/dL (NEGATIVE); RED CELLS - URINE NONE SEEN /hpf (0-5); UROBILINOGEN NORMAL (NORMAL); WHITE CELLS - URINE OCC /hpf (NEGATIVE)
[2019-10-13 15:45] VITALS: BP 145/61
--- NOTE | 2019-10-13 19:32 | NUR ---
RECEIVED BEDSIDE REPORT. PATIENT IS ALERT AND ORIENTED, RESTING COMFORTABLY IN BED. RESPIRATIONS ARE EVEN AND UNLABORED. NO S/S OF DISTRESS. NO C/O PAIN. CALL LIGHT WITHIN REACH.
[2019-10-13 20:48] VITALS: BP 136/67
[2019-10-14 00:41] VITALS: BP 156/85
[2019-10-14 03:53] VITALS: BP 149/82
[2019-10-14 05:12] LABS: BASOPHILS 0.3 % (0-2); EOSINOPHILS 1.8 % (0-7); HEMATOCRIT 31.2 % (36.0-48.0); HEMOGLOBIN 10.7 g/dL (12-16); IMMATURE GRANULOCYTES 0.2 % (0-5); LYMPHOCYTES 17.6 % (15-50); MCH 30.4 pg (26.0-34.0); MCHC 34.3 g/dL (31.0-37.0); MCV 88.6 fL (80.0-100.0); MEAN PLATELET VOLUME 10.4 fL (7.4-10.4); MONOCYTES 14.1 % (2-11); PLATELET COUNT 391 10x3/uL (130-400); RBC 3.52 10x6/uL (4.00-5.40); RDW 12.1 % (11.5-14.5); WBC 10.1 10x3/uL (4.8-10.8)
[2019-10-14 05:16] LABS: CALC OSMOLALITY 274 mosm/kg (275-300); CALCIUM 8.5 mg/dL (8.5-10.1); CHLORIDE - SERUM 97 mmol/L (98-107); CREATININE - SERUM 0.7 mg/dL (0.6-1.3); GLUCOSE 189 mg/dL (74-106); POTASSIUM - SERUM 3.1 mmol/L (3.5-5.1); SODIUM 135 mmol/L (136-145); eGFR NON AFRICAN AMERICAN 86 mL/min (90-120)
[2019-10-14 05:20] LABS: UREA NITROGEN 12 mg/dL (7-18)
[2019-10-14 09:31] VITALS: BP 147/70
[2019-10-14] MEDS ORDERED: LASIX40 MG PO (09:31)
[2019-10-14] MEDS ORDERED: PLAVIX75 MG PO (09:31)
[2019-10-14] MEDS ORDERED: COREG25 MG PO (09:31)
[2019-10-14] MEDS ORDERED: LISINOPRIL-HCT1 EAC4 PO (09:32)
[2019-10-14] MEDS ORDERED: KLOR-CON 1010 MEQ PO (09:32)
[2019-10-14] MEDS ORDERED: PRAVACHOL40 MG PO (09:35)
--- NOTE | 2019-10-14 09:39 | NUR ---
02 SAT 91% ON ROOM AIR WHILE AMBULATING HALLWAY.
--- NOTE | 2019-10-14 09:47 | NUR ---
UPON ADMIT, PATIENT HAS NOT HAD A FLU SHOT. ORDERED ONE UPON DISCHARGE.
[2019-10-14] MEDS ORDERED: GLUCOPHAGE500 MG PO (10:02)
[2019-10-14] MEDS ORDERED: LEVOFLOXACIN500 MG PO (10:03)
[2019-10-14] MEDS ORDERED: PROTONIX40 MG PO (10:04)
--- NOTE | 2019-10-14 10:44 | NUR ---
ALL CONTINUED MEDS CALLED TO [facility] IN [place], SPOKE WITH LEYLA-PHARMACIST
[2019-10-14] MEDS ORDERED: BAYER CHEWABLE81 MG PO (10:48)
--- NOTE | 2019-10-14 12:12 | NUR ---
IV AND TELEMETRY DCD. DC PLANS GIVEN. UNDERSTANDING VOICED. ESCORTED TO CAR BY W/C.
--- NOTE | 2019-10-14 17:03 | MORECARE ---
CASE MANAGEMENT DISCHARGE SUMMARY PATIENT: KAE STINSON UNIT: [id number] ADM DATE: 10/10/19 AGE: 79 : 42 SEX: F ROOM/BED: D.4208 AUTHOR: GLENNA,DOC PHYSICIAN: REFERRING PHYSICIAN: DORIAN ADKINS MD DATE OF SERVICE: 10/14/19 Discharge Plan Patient Name: KAE STINSON Facility: [facility]:[place] : 1940 Planned Disposition: Home Anticipated Discharge Date: 10/14/19 Discharge Date: 10/14/2019 Expected LOS: 4 Initial Reviewer: [email or web address] Initial Review Date: 10/14/2019 Generated: 10/14/19 6:03 pm Comments DCP- Discharge Planning Updated by [email or web address]: Chidi Jean on 10/14/19 4:[address] Patient Name: KAE STINSON Admission Status: ER Accout number: [id number] Admission Date: 10-10-2019 : 1940 Admission Diagnosis: Attending: DAVID ADKINS Current LOS: 4 Anticipated DC Date: 10-14-2019 Planned Disposition: Home Primary Insurance: MEDICARE A & B Discharge Planning Comments: CM MET WITH PT IN ROOM TO DISCUSS DISCHARGE PLANNING AND NEEDS. PT REPORTS LIVING AT HOME INDEPENDENTLY WITH HER ADULT DAUGHTER. PT HAS NO MEDICAL EQUIPMENT AND NO OUTSIDE SERVICES ASSISTING IN THE HOME. CM DISCUSSED AVAILABILITY OF HOME HEALTH, REHAB SERVICES AND MEDICAL EQUIPMENT. PT DENIES DISCHARGE NEEDS, REPORTS HER SON WILL PICK HER UP FOR DISCHARGE HOME. IMPORTANT MESSAGE FROM MEDICARE PROVIDED AND EXPLAINED. Professor Of Radiology: Chidi Jean DCPIA - Discharge Planning Initial Assessment Updated by [email or web address]: Chidi Jean on 10/14/19 5:01 pm * Is the patient Alert and Oriented? Yes * How many steps to enter\exit or inside your home? * PCP NONE GOING TO TRY TO GET IN TO DR. HOOPER IN [place] * Pharmacy [facility] IN [place] * Preadmission Environment Home with Family * ADLs Independent * Equipment None * Other Equipment NO MEDICAL EQUIPMENT PROVIDER PREFERENCE * List name and contact numbers for known caregivers / representatives who currently or will assist patient after discharge: ROSEANNA ROWLEYR, AL RIOS SON, * Verbal permission to speak to the caregivers and representatives has been obtained from the patient. N/A * Community resources currently utilized None * Please name any agencies selected above. NONE * Additional services required to return to the preadmission environment? No * Can the patient safely return to the preadmission environment? Yes * Has this patient been hospitalized within the prior 30 days at any hospital? No Coverage Notice Reviewer: [email or web address] [place] Notice Issued Date-Time: 10/14/2019 11:45 Notice Type: IM Discharge Notice Notice Delivered To: Patient Relationship to Patient: Manager Of Purchasing Name: Delivery Method: HAND - Hand Delivered Luanne Days: Prior Verbal Notification: Recipient Understood Notice: Yes Recipient Signature: Yes Med Rec Note Co-signed by Attending: Coverage Notice Comment: Patient Name: KAE STINSON Page [phone] at [phone] All edits/amendments must be made on the electronic document DICTATION DATE: 10/14/191702 MANAGER OF IT: ALEJANDRA 10/14/191702 RPT#: [id number] DC DATE:10/14/19 STATUS: DIS IN [facility] [address] [place] [address] END OF REPORT
== END 2019-10-14 12:13 | disposition home or self-care (01) | DRG 246 ==
LOC: D.CATH 17:17 → D.ER 17:17 → D.CATH 17:52 → EDSTATUS 19:14 → D.M2 19:15 → D.CATH 19:16 → D.M2 19:16
PROVIDERS: Internal Medicine Nephrology; Internal Medicine Pulmonary Disease; ADMIT Internal Medicine Interventional Cardiology; ATTEND Internal Medicine Interventional Cardiology
PROC: 4A023N7 Measurement of Cardiac Sampling and Pressure, Left Heart, Percutaneous Approach (ICD-10-PCS; 2019-10-10)
PROC: 027236Z Dilation of Coronary Artery, Three Arteries with Three Drug-eluting Intraluminal Devices, Percutaneous Approach (ICD-10-PCS; principal; 2019-10-10 17:32)
PROC: 027035Z Dilation of Coronary Artery, One Artery with Two Drug-eluting Intraluminal Devices, Percutaneous Approach (ICD-10-PCS; 2019-10-11)
DX: I21.3 ST elevation (STEMI) myocardial infarction of unspecified site (principal); I50.23 Acute on chronic systolic (congestive) heart failure; J18.9 Pneumonia, unspecified organism; J96.01 Acute respiratory failure with hypoxia; E87.1 Hypo-osmolality and hyponatremia; I11.0 Hypertensive heart disease with heart failure; I25.10 Atherosclerotic heart disease of native coronary artery without angina pectoris; E11.65 Type 2 diabetes mellitus with hyperglycemia; K21.9 Gastro-esophageal reflux disease without esophagitis; E78.5 Hyperlipidemia, unspecified; E78.00 Pure hypercholesterolemia, unspecified